=== PATIENT | male | born 1990 | race Caucasian/White ===

== ENCOUNTER 2019-03-27 09:19 | Emergency (ER) | payer BC ==
[~2019-03-27] VITALS: Ht 182.9 cm; Wt 93.2 kg
[2019-03-27 09:35] VITALS: BP 133/81; TEMP 97.5
[2019-03-27] MEDS ORDERED: NORCO 325 MG-51 TAB PO (10:08)
[2019-03-27 11:18] VITALS: PULSE 55
== END 2019-03-27 11:18 | disposition home or self-care (01) ==
LOC: COL.ER 09:19
DX: S52.122A Displaced fracture of head of left radius, initial encounter for closed fracture (principal); V87.8XXA Person injured in other specified noncollision transport accidents involving motor vehicle (traffic), initial encounter
CPT/HCPCS: Q4050